=== PATIENT | male | born 2000 | race Caucasian/White ===

== ENCOUNTER 2019-04-15 14:17 | Emergency (ER) | payer SELFPAY ==
[~2019-04-15] VITALS: Ht 177.8 cm; Wt 73.0 kg
[2019-04-15 14:18] VITALS: BP 107/69
[2019-04-15] MEDS ORDERED: TETANUS, DIPHTHERIA, PERTUSSIS VAC/PF 0.5ML (>7YR OLD) IM ONE (14:45)
== END 2019-04-15 14:54 | disposition home or self-care (01) ==
LOC: ER 14:17
DX: S61.211A Laceration without foreign body of left index finger without damage to nail, initial encounter (principal); F12.10 Cannabis abuse, uncomplicated; W26.0XXA Contact with knife, initial encounter; Y93.89 Activity, other specified; Y92.010 Kitchen of single-family (private) house as the place of occurrence of the external cause
CPT/HCPCS: 90471; 90715; 99283